=== PATIENT | male | born 1955 | race Caucasian/White ===

== ENCOUNTER → 2018-02-09 19:00 | Outpatient (CLI) | payer OTHER, MEDICAID, SELFPAY ==
--- NOTE | 2018-02-09 | DI.MRI.S_ITS ---
PROCEDURE: MR KNEE LT WO CON INDICATIONS: ACUTE TRAUMATIC INTERNAL DERANGEMENT OF LEFT KNEE TECHNIQUE: Noncontrast sagittal PD fast spin echo and T2 fast spin echo with fat saturation, sagittal 3-D FLASH with fat saturation; coronal T1 spin echo and PD fast spin echo with fat saturation, and axial PD fast spin echo with fat saturation through the knee. COMPARISON: None. FINDINGS: Image quality: Excellent. Menisci: Lateral meniscus appears intact. Intrasubstance signal change involving the free margin of the posterior horn of the medial meniscus with extension to the superior and inferior surfaces suggesting ill-defined tear. A small radial component seen on image 20 series 7. Cruciate ligaments: The anterior and posterior cruciate ligaments appear intact. Medial structures: The medial collateral ligament appears intact. The posterior oblique ligament, semimembranosus tendon insertions, oblique popliteal ligament, and meniscocapsular junction appear intact. Visualized portions of the pes anserinus tendons appear normal. No abnormal bursal fluid. Lateral structures: The lateral collateral ligament, long and short heads of the biceps femoris tendon appear intact. The popliteus tendon appears normal; the popliteofibular ligament appears intact. The posterosuperior and anteroinferior popliteomeniscal fascicles appear intact. The arcuate and fabellofibular ligaments appear intact, on either side of the lateral inferior geniculate artery. Iliotibial band appears normal. Anterior structures: The quadriceps and patellar tendons appear intact. Although, there is prominent superficial infrapatellar subcutaneous edema, although subtle intrasubstance change in the distal patellar tendon suggestive of chronic mild tendinosis. Patellar alignment is normal. No femoral trochlear dysplasia or ventral trochlear prominence. No edema in the infrapatellar fat pad. Bones and cartilage: No bone marrow contusions or fractures. Within the medial compartment, the articular cartilage appears grossly intact. Within lateral compartment, there is intrasubstance signal change at the central weightbearing tibial cartilage without definite focal defect. Within the patellofemoral compartment, there is diffuse mild surface fraying of the patellar cartilage with areas of cartilage fissuring overlying the medial patellar facet. Joint space: There is physiologic knee joint fluid. Moderate Montoya cyst measuring 5.4 cm in cephalocaudad dimension. IMPRESSION: Medial meniscal tear involving the posterior horn detailed above. Mild patellar tendinopathy/tendinosis. Adjacent superficial patellar subcutaneous edema which could be reactive versus acute soft tissue contusion. Mild degenerative joint disease. Small Montoya's cyst. Dictated by: Erwin Whitfield M.D. on 02/12/2018 at 10:03 Approved by: Erwin Whitfield M.D. on 02/12/2018 at 10:13
== END ==
PROVIDERS: PCP Family Medicine; Visit Provider Family Medicine
DX: M23.92 Unspecified internal derangement of left knee (principal); S83.242A Other tear of medial meniscus, current injury, left knee, initial encounter
CPT/HCPCS: 73721

== ENCOUNTER 2023-08-15 08:01 | Day surgery (SDC) | payer MEDICARE, OTHER, MEDICAID, SELFPAY ==
[2023-08-15 08:29] VITALS: BMI 30.5
[2023-08-15 08:44] VITALS: BP 128/72; PULSE 62; RESP 17; TEMP 36.2; O2SAT 96
[2023-08-15] MEDS: LACTATED RINGERS 1,000 ML 42 ML IV (08:53)
[2023-08-15] MEDS: ACETAMINOPHEN 325 MG TABLET 975 MG PO (08:57)
[2023-08-15] MEDS: TERAZOSIN 5 MG CAPSULE 10 MG PO (08:58)
--- NOTE | 2023-08-15 09:02 | P.HP_ITS ---
History of Present Illness History of Present Illness Date Patient Seen: 08/15/23 Time Patient Seen: 09:02 Chief complaint: Umbilical & Inguinal Hernia repairs Narrative: Gagandeep is a 67-year-old man with a symptomatic umbilical hernia. He also has occasional right groin pain and very rarely some left groin pain. He had a CT scan at another hospital that showed bilateral fat containing groin hernias and the umbilical hernia. When he had an appendectomy many years ago the surgeon commented to him that he had a very enlarged prostate, presumably because they had trouble putting a Hammer catheter in. He does report a weak stream. He has seen a urologist in the past but not currently. 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[employer], builder Smoking Status: Never smoker alcohol intake: current substance use type: does not use during the past year weight has: increased > 10 lbs Meds Home Medications and Allergies Home Medications Medication Instructions Recorded Confirmed Type fluticasone furoate 200 1 ea inhalation DAILY 04/18/23 08/15/23 History mcg-vilanterol 25 mcg/dose inhalation powder (Breo Ellipta) montelukast 10 mg tablet 10 mg PO DAILY 04/18/23 08/15/23 History terazosin 10 mg capsule 10 mg PO DAILY 04/18/23 04/18/23 History albuterol sulfate 90 mcg/actuation 2 puff inhalation Q6H PRN Allergy 08/15/23 08/15/23 History aerosol inhaler Symptoms fluticasone propionate 50 2 spray intranasal DAILY 08/15/23 08/15/23 History mcg/actuation nasal spray,suspension (Flonase Allergy Relief) Allergies Allergy/AdvReac Type Severity Reaction Status Date / Time Penicillins [PENICILLINS] Allergy Unknown Verified 08/15/23 08:23 Exam Vital Signs (past 8 hours): - 08/15/23 08:44 Temperature 97.1 F L Pulse Rate 62 Respiratory Rate 17 Blood Pressure 128/72 Pulse Oximetry 96 Oxygen Delivery Method Room Air Oxygen Delivery Method Room Air Narrative Exam Narrative: Reducible umbilical hernia, fascial defect approximately 2 cm Small palpable right groin hernia Left groin hernia is difficult to appreciate on exam due to body habitus Assessment & Plan Assessment and plan (1) Bilateral inguinal hernia: Qualifiers: Obstruction and gangrene presence: without obstruction or gangrene Recurrence: not specified as recurrent Qualified Code(s): K40.20 - Bilateral inguinal hernia, without obstruction or gangrene, not specified as recurrent Status: Acute (2) Umbilical hernia: Qualifiers: Obstruction and gangrene presence: without obstruction or gangrene Qualified Code(s): K42.9 - Umbilical hernia without obstruction or gangrene Status: Acute Quinton Donis is a 67-year-old man with bilateral inguinal hernias and an umbilical hernia. I proposed to him that we proceed with a laparoscopic bilateral i nguinal hernia repair and an umbilical hernia repair with mesh. If however his bladder is chronically distended due to an enlarged prostate it might not be possible to perform the laparoscopic groin hernia repairs in which case I would perform the umbilical hernia repair and an open right inguinal hernia repair since that is the more symptomatic side. We could always return at a later date to perform left inguinal hernia repair if it becomes more symptomatic. He would like to proceed.
[2023-08-15] MEDS: CEFAZOLIN 2 GM/100 ML PREMIX 100 ML IV (09:29)
--- NOTE | 2023-08-15 10:03 | SUR.OPER ---
Supine on padded OR bed, head on pillow, arms padded and tucked at sides, legs uncrossed, safety belt at thigh, tape over blanket over lower legs .
[2023-08-15] MEDS: BUPIVACAINE 0.5% (PF) 30 ML, EPINEPHrine 0.15 MG INJ (10:21)
--- NOTE | 2023-08-15 11:40 | P.OP_ITS ---
Operative Date/Time/Diagnoses Date of procedure: 08/15/23 Time of procedure: 11:40 Pre-op diagnosis: Bilateral inguinal hernia and umbilical hernia Post-op diagnosis: other (Right indirect inguinal hernia and umbilical hernia) Procedure & Clinicians Procedure: 1. Laparoscopic right inguinal hernia repair with mesh 2. Open umbilical hernia repair with mesh Same procedure as scheduled: No Surgeon: Tyrell Morris Anesthesia Type: General Operative Notes Procedure in detail: The patient was given preoperative antibiotics. The patient was brought to the operating room, placed on the table in the supine position with the arms tucked and general anesthesia was induced. The abdomen was prepped and draped in the usual fashion. A time-out was performed. A 2 cm infraumbilical incision was created and dissection was carried down to the hernia sac. The sac was diss ected from the umbilical stalk and the surrounding tissue. The fascial defect was about 2 cm. We then opened the sac with cautery and placed the Carbajal port through the hernia defect. The Martine port was placed through the hernia defect and the abdomen was insufflated to 15 mmHg. The camera was inserted, there was no evidence of any injury from the entry. There was an indirect right inguinal hernia. No obvious left inguinal hernia was seen. There was an enlarged, distended bladder. 5 mm ports were placed under direct vision in the mid left and mid right abdomen. The patient was positioned in steep Trendelenburg. We created right peritoneal flap. The peritoneum was dissected off the right cord structures. A rather bulky cord lipoma was dissected out of the inguinal canal and left attached to its blood supply. A large right Bard mesh was brought in and placed over the defect with the medial edge against Luther's ligament. We allowed the bulky cord lipoma to fall over the inside of the mesh. We then closed the peritoneal flap with a running 3-0 barbed suture. We took one last look around the abdomen and saw no other abnormalities. The suture was removed and accounted for. The 5 mm ports were removed under direct vision. The abdomen was desufflated. The Martine port was removed. We then closed the umbilical fascial defect with 4 interrupted 0 Ethibond sutures. We dissected the subcutaneous adipose tissue off the anterior sheath circumferentially about 1 cm in all directions. We then placed a small disc of polypropylene mesh over the repair and bonded it to the fascia with Tisseel. The skin incisions were closed with 4 Monocryl, Steri-Strips and Band-Aids. Can abdominal binder was applied. EBL: 10 mL Post-operative Condition: stable Disposition: PACU
[2023-08-15 11:45] VITALS: BP 101/56; PULSE 83; RESP 12; TEMP 37.2; O2SAT 93
[2023-08-15 11:50] VITALS: BP 102/58; PULSE 73; RESP 13; O2SAT 96
[2023-08-15 11:55] VITALS: BP 107/77; PULSE 69; RESP 13; O2SAT 94
[2023-08-15] MEDS: OXYCODONE IR 5 MG TABLET PO (11:56)
[2023-08-15 12:10] VITALS: BP 113/79; PULSE 66; RESP 13; TEMP 37.2; O2SAT 97
== END 2023-08-15 12:34 | disposition home or self-care (01) ==
PROVIDERS: PCP Family Medicine; Referring Provider Surgery; Visit Provider Surgery
PROC: (CPT 49650; principal; 2023-08-15 09:15)
PROC: 0YQ64ZZ Repair Left Inguinal Region, Percutaneous Endoscopic Approach (ICD-10-PCS; CPT 49650; 2023-08-15 09:15)
DX: K40.90 Unilateral inguinal hernia, without obstruction or gangrene, not specified as recurrent (principal); K42.9 Umbilical hernia without obstruction or gangrene; D17.6 Benign lipomatous neoplasm of spermatic cord
CPT/HCPCS: 49650; C1781; J0171; J0690; J1100; J2250; J2405; J2704; J3010

== ENCOUNTER → 2024-01-12 08:30 | Outpatient (CLI) | payer OTHER, SELFPAY ==
--- NOTE | 2024-01-12 08:31 | DI.MRI.S_ITS ---
PROCEDURE: MR PELVIC PROSTATE PROTOCOL INDICATIONS: Obstructing prostate TECHNIQUE: Coronal HASTE, axial T1 FSE with fat saturation, 3-plane nonbreath-hold T2 FSE. After the administration of contrast, dynamic axial, delayed axial and coronal VIBE or 2-D FLASH with fat saturation through the pelvis. Diffusion weighted imaging and ADC was performed. COMPARISON: None. FINDINGS: Image quality: Diffusion weighted and dynamic contrast enhanced images are diagnostic. Prostate: Gland size is 5.8 x 6.4 x 6.1 cm; ellipsoid gland volume is 118 mL. Hypertrophy of the transition zone with encapsulated and partially encapsulated nodules. No PI-RADS 3 through 5 lesions. Genitourinary system: Trabeculated bladder wall. Bladder wall diverticula. Bowel and peritoneum: No pathologic free pelvic fluid. Inferior colon and small bowel loops are normal in caliber. Colonic diverticulosis without evidence of diverticulitis. Nodes and vessels: No pelvic or inguinal adenopathy by size criteria. Iliac vessels are normal in caliber. Soft tissues: Right inguinal hernia repair. Small umbilical hernia containing fat. Bones: Marrow demonstrates normal overall signal, without lesions to suggest metastases. IMPRESSION: Prostatomegaly. No PI-RADS 3 through 5 lesions. No pelvic lymphadenopathy by size criteria. No aggressive osseous abnormality. Trabeculated bladder wall with bladder diverticula, consistent with chronic outlet obstruction. Dictated by: Ruslan Pacheco M.D. on 01/12/2024 at 10:32 Approved by: Ruslan Pacheco M.D. on 01/12/2024 at 10:43
== END ==
LOC: MRI 08:30
PROVIDERS: PCP Family Medicine; Referring Provider Urology; Visit Provider Urology
DX: N32.0 Bladder-neck obstruction (principal); R39.14 Feeling of incomplete bladder emptying; N32.89 Other specified disorders of bladder; N32.3 Diverticulum of bladder; K42.9 Umbilical hernia without obstruction or gangrene; N40.0 Benign prostatic hyperplasia without lower urinary tract symptoms
CPT/HCPCS: 72197; A9579

== ENCOUNTER → 2024-06-28 10:12 | Outpatient (CLI) | payer OTHER, SELFPAY ==
[2024-06-28 11:50] LABS: Prostate Specific Antigen 4.26 ng/mL (0.10-4.00)
== END ==
PROVIDERS: PCP Family Medicine; Referring Provider Urology; Visit Provider Urology
DX: N40.0 Benign prostatic hyperplasia without lower urinary tract symptoms (principal); R97.20 Elevated prostate specific antigen [PSA]
CPT/HCPCS: 36415; 51798; 84153; 99213

== ENCOUNTER → 2024-10-16 11:01 | Outpatient (CLI) | payer OTHER, MEDICAID, SELFPAY | PROVIDERS: PCP Family Medicine; Visit Provider Urology | DX: R39.14 Feeling of incomplete bladder emptying (principal); N40.1 Benign prostatic hyperplasia with lower urinary tract symptoms; N13.8 Other obstructive and reflux uropathy; R97.20 Elevated prostate specific antigen [PSA]; Z68.30 Body mass index [BMI] 30.0-30.9, adult | CPT/HCPCS: 87086; 99214 ==

== ENCOUNTER 2024-10-22 06:15 | Day surgery (SDC) | payer OTHER, SELFPAY ==
[2024-10-14 15:02] VITALS: BMI 30.5
[2024-10-22] VITALS (13 sets, daily range): BP systolic 108–140; BP diastolic 62–91; PULSE 58–101; RESP 12–18; TEMP 36.3–37.2; O2SAT 94–97; BMI 31.8
--- NOTE | 2024-10-22 | PATH_ITS ---
[facility] Accession Number: [id number] No. of containers..01 Tissue . 01 Material submitted: . prostate - PROSTATE CHIPS . 01 Diagnosis: PROSTATE CHIPS, TRANSURETHRAL PROSTATIC TISSUE RESECTION: Benign prostatic parenchyma, weight 10 grams with mild chronic focally active inflammation, in a background of glandular and stromal hypertrophy. Benign urothelial mucosa with cystitis cystica changes. Negative for atypia or invasive malignancy. [facility] 10/24/2024 1105 Local . 01 Electronically signed: . Dolly Banuelos MD, Pathologist NPI- [id number] . 01 Gross description: . Received in formalin with two patient identifiers and prostate chips, and consists of a 4.2 x 3.0 x 1.8 cm (10 gram), fischer-brown, cauterized, rubbery, morcellated tissue which is entirely submitted into cassettes A1-A5. ([id number]) /MRV 10/23/2024 1315 Local . 01 Pathologist provided ICD-10: N40.1 . 01 CPT . 821547 Specimen Comment: A courtesy copy of this report has been sent to [facility] Performed at: [address] [facility] [address], [place], [place] [id number] MD Jhoan Jackson MD Phone: [phone]
[2024-10-22] MEDS: ACETAMINOPHEN 325 MG TABLET 975 MG PO (06:59)
[2024-10-22] MEDS: LACTATED RINGERS 1,000 ML 42 ML IV ×2 (07:00→09:19)
--- NOTE | 2024-10-22 07:38 | PM.PREOP ---
Pre-operative Note COVID-19 COVID-19 status: Not tested Interval Note History & Physical reviewed/Exam performed by Physician: Yes Changes to H&P: No
[2024-10-22] MEDS: CIPROFLOXACIN 400 MG/200 ML PIGGYBACK 200 MG IV (07:55)
--- NOTE | 2024-10-22 08:15 | SUR.OPER ---
Lithotomy on padded OR bed, head on pillow, arms secured on padded arm boards at <90 degrees abduction. Legs secured in padded yellow fins stirrups.
[2024-10-22] MEDS: OXYBUTYNIN 5 MG TABLET PO ×2 (10:24→20:38)
[2024-10-22] MEDS: PHENAZOPYRIDINE 100 MG TABLET 200 MG PO ×2 (10:24→20:38)
[2024-10-22] MEDS: hydrOXYzine 50 MG/ML INJ 25 MG IM (10:59)
[2024-10-22] MEDS: OXYCODONE IR 5 MG TABLET PO (11:24)
--- NOTE | 2024-10-22 13:43 | P.OP_ITS ---
Procedure & Clinicians Procedure: 1. Aquablation 2. Transrectal ultrasound of prostate 3. Transurethral resection of prostate 4. Placement of Hammer catheter Same procedure as scheduled: Yes Indications: This 69-year-old male presented with profound complaints of BPH with LUTS failing medical management. Through workup he was found to have a low Q max a markedly enlarged prostate in the 145-150 g range with a median lobe which were laterally based in bulging into the bladder. Patient also had a prostate MRI which showed no worrisome lesions for his elevated PSA. He presents this time for Aquablation to treat his lower urinary tract symptoms and eliminate his outlet obstruction and incomplete emptying of the bladder. Surgeon: Olivier Flowers Click Yes if Unassisted: Yes Anesthesia Type: General Operative Notes Findings: Urethral meatus is normal, the urethra is normal along its length with normal mucosa. The sphincters well coapted. The prostate exhibits marked obstructive character bulging in elongation into the bladder with median lobe. The ureteral orifices at the end of the case were normal position and unaffected. The patient had severe trabeculation cellules diverticula but no mucosal lesions or abnormalities that were worrisome. The truss the catheter time was 90 minutes. Aquablation resection time total of 13 minutes. The resection time with the resectoscope was elongated because of the patient's large residual median lobe. At the end of the procedure the prostatic fossa was widely patent and the patient had a vigorous stream. A 24 [place] 3 way hematuria catheter was left in place with 45 cc in the balloon it was a 30 cc catheter. There were no other abnormalities noted. Closure Type: not applicable Specimen(s): other (Prostate chips) Prosthetic devices, grafts, tissues, transplants, or devices: 24 [place] [address] catheter with 45 cc in the balloon. Applied: catheter (As above) Estimated Blood Loss (mL): 75 Blood products transfused: none Procedure in detail: Procedure in detail: After informed consent was obtained, the patient was id entified brought to the operating room where he was placed in his supine position on the table. Once there anesthesia was induced and maintained. Ensuring an adequate level of anesthesia the patient was transitioned to the lithotomy position where he was prepped. After prepping, time-out, ensuring an adequate level of anesthesia, antibiotics the patient had 60 cc of ultrasound gel instilled within the rectum followed by the ultrasound probe was mounted to the trust stepper which was mounted to the articulating arm which he had been mount it to the bed. The ultrasound probe was aligned and centered in the prostate. This was in the transverse and longitudinal view. The bladder neck verumontanum and central and transition zones were identified. Prostate was found to be again 150 g. With the ultrasound aligned and centered the patient was then draped in his sterile fashion. After draping the 24 [place] aqua beam handpiece was inserted into the prostatic urethra and bladder under direct vision cystoscopy was performed. As it was inserted the level of the external sphincter, verumontanum prostate and bladder neck as well as median lobe were noted under direct vision and by ultrasound. The Aquablation handpiece was then secured to the handpiece articulating arm which he had been secured to the bed. The aqua beam handpiece was then confirmed to be in alignment with the truss probe and that it was parallel and colinear. The Aquablation nozzle was then confirmed to be centered and anterior to the median lobe. The cystoscope was then retracted in the verumontanum and bladder neck and external sphincter were visualized the tip of the scope was left just proximal to the external sphincter sphincter. The alignment of the ultrasound probe and Aquablation handpiece was once again confirmed and compression applied. Horizontal alignment of the hand piece water jet was then confirmed. Aquablation treatment zones were then planned using real-time ultrasound to visualize the contours of the prostate the depth and radial angles were defined in the transverse view. With this accomplished in the sagittal view the Aquablation beam nozzle was identified in his position registered with the software. The tip of the scope was then also marked in the length of resection determined. The way points of the started resection median lobe bladder neck mid prostate and verumontanum were tip of the scope were then marked. The treatment plan was then confirmed. And insuring the patient was paralyzed Aquablation treatment was started and follow the resection contour. This was monitored with real-time ultrasound. With his 1st pass completed again in the longitudinal view the treatment plan was adjusted and a 2nd pass performed with the patient paralyzed. Was then determine that the median lobe would need a 3rd pass and again should be noted that a program for depth and radial angles was confirmed for both the prostate and the median lobe. For the 3rd pass again the the treatment parameters were adjusted for the median lobe and the 3rd pass completed treating just the median lobe. With this done the total resection time with the Aquablation was 13 minutes. The cystoscope was then advanced of the tip of the scope and the Aquablation handpiece undocked from the articulating arm and backed out under direct vision. Of note prior to inserting the Aquablation handpiece the meatus was too small to accept it and was dilated to 28 [place] sequentially from 20 [place] with Sebastián sounds. The resectoscope was then passed through the urethra prostate end of the bladder under direct vision and ultrasound guidance. And helical evacuator was then used to evacuate clot and clear of the bladder. The resectoscope and resecting element were then inserted and after noting the position of the ureteral orifices the bladder neck and residual median lobe were resected from the to to 10 o'clock position sequentially. Points of bleeding were controlled. The apex was visualized verumontanum was intact there was some small amount of apical tissue which was resected with the resectoscope. Points of bleeding anteriorly in in the remainder of the prostate were controlled with the electrocautery. The median lobe tissue did require a longer period of resection to remove the residual. The [employer] evacuator was then used to evacuate the prostate chips and a small amount of clot and the scope was reinserted ureteral orifices were in good position and on affected by the procedure. With the bladder full the scope was removed and the patient had a vigorous stream. A 24 [place] 30 cc three-way hematuria catheter was then paced with the aid of a catheter guide and ultrasound guidance. The balloon was filled with 45 cc of sterile water and placed to gravity drainage and continuous bladder irrigation. It was then hand irrigated with water and the effluent was light pink. The catheter was placed a very gentle traction and the patient was awakened having tolerated the procedure well to be transferred to the postanesthesia care unit with the catheter in place and the continuous bladder irrigation running. There were no complications. Complications: none Post-operative Condition: stable Disposition: PACU Plan for aftercare: Patient will be observed in the postanesthesia care unit and if his urine remains an acceptable color the patient will be sent home to follow up in my office on if it should be ?redder? than I would like we will bring him in overnight with continuous bladder irrigation.
--- NOTE | 2024-10-22 16:12 | PC.NURSE ---
Addendum entered by Gretel Agrawal R.N. 10/22/24 18:36: Patients true urine out is 1400. Color is still grade 2. Tolerating bladder irrigation. Addendum entered by Gretel Agrawal R.N. 10/22/24 17:12: Patients urine is now a grade 2, the color has lightned to more of a blush color. He ate well at dinner and is resting. He knows to call if he needs pain medication. Original Note: Patient up to room 203 about an hour ago, he is settled in and oriented to his room and callbell. He has a [address] way farrell catheter with NS irrigation and the grade of his urine is a grade 2/3 in the farrell tube. He denies pain at this time, or nausea. Bladder is not distended. Resting comfortably and tolerating irrigation well.
[2024-10-22] MEDS: ACETAMINOPHEN 325 MG TABLET 650 MG PO (20:38)
[2024-10-23 00:17] VITALS: BP 108/66; PULSE 53; RESP 18; TEMP 36.4; O2SAT 97
[2024-10-23 06:00] VITALS: BP 116/72; PULSE 54; RESP 18; TEMP 36.7; O2SAT 95
[2024-10-23 07:56] VITALS: PULSE 65; RESP 16; O2SAT 96
--- NOTE | 2024-10-23 08:14 | P.DS_ITS ---
History of Present Illness History of Present Illness Date Patient Seen: 10/23/24 Time Patient Seen: 07:36 Date of Onset of Symptoms: 10/22/24 Chief complaint: Aquablation Narrative: This patient underwent Aquablation yesterday and was observed overnight with continuous bladder irrigation. His urine this morning is clear and he is ready for discharge. Patient denies gastrointestinal distress reports that he is passing flatus and only complaint of discomfort is at the tip of the penis which oxybutynin Pyridium are taken care of. Discharge instructions given verbally to the patient and he will be seen tomorrow for likely catheter removal. Vital signs are stable does have a heart rate of 54. On exam abdomen is soft nontender with normal bowel tones. Hammer catheter is in place draining clear Pyridium tinged urine. Discharge Providers Provider Discharge Date: 10/23/24 Primary care physician: Bart Dumas DO Discharge provider: Olivier Flowers MD Summary Hospital Course Discharge Diagnosis: Benign prostatic hyperplasia with LUTS after Aquablation. Hospital Course: Patient was admitted to the hospital underwent Aquablation without incident. Postprocedure patient did have some persistent hematuria therefore was brought up to acute care for continuous bladder irrigation. His urine has cleared overnight and he has tolerated a regular diet ambulated without difficulty is passing flatus in his ready for discharge. Status at Discharge Cognitive/behavioral status at discharge: oriented Functional status at discharge: independent ambulation Overall status at discharge: patient is back to baseline Time Spent with Patient Time spent: Less than 30 minutes Exam Vital Signs (past 8 hours): - 10/23/24 00:17 10/23/24 06:00 10/23/24 07:56 Temperature 97.6 F 98.1 F Pulse Rate 53 L 54 L 65 Respiratory Rate 18 18 16 Blood Pressure 108/66 116/72 Pulse Oximetry 97 95 96 Oxygen Delivery Method Room Air Oxygen Flow Rate 0 0 Oxygen Delivery Method Room Air Oxygen Flow Rate 0 Narrative Exam Narrative: General: This is an awake, alert, oriented male in no acute distress lying in his bed. Lungs: Clear Cardiovascular exam: Regular with a rate of 60 this morning Abdominal exam: Soft, nontender, obese Genitourinary exam: Normal male with Hammer catheter in place draining Pyridium tinged urine Extremities nontender ON LICENSE OF [facility] Medical History BPH w urinary obs/LUTS Bladder outlet obstruction Constipation Feeling of incomplete bladder emptying Secondhand smoke exposure Benign prostatic hyperplasia with lower urinary tract symptoms History of asthma Irritable bowel syndrome with constipation and diarrhea BPH with elevated PSA Hypersomnia (~03/2019) Insomnia, persistent (~03/2019) Obstructive sleep apnea of adult (~03/2019) Snoring Asthma Surgical History History of hernia repair (08/15/23) Hx of appendectomy History of laparoscopic cholecystectomy (~2016) Family History Father Cancer Diabetes mellitus Gout Mother Cancer Social History marital status: unmarried,single number of children: 1 household members: friend(s) lives independently: Yes housing: house education level: high school occupational status: employed 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 Plan of Treatment: Discharge to home with Hammer catheter. Patient to follow up my office tomorrow morning. Discharge instructions have been discussed with the patient and also provided in written form. Discharge Plan Discharge Plan Patient Disposition: Home Provider Discharge Comment: Patient to be discharged home with Hammer catheter please provide the necessary tools and teaching for the patient to use the catheter. Once discharge the patient can expect some blood in his urine perhaps some small clots. Patient should increase his fluid intake to ?flush things through?. Patient should refrain from heavy lifting, vigorous or strenuous activity until released by me. Patient may resume his regular diet and the patient may shower. Patient was to have a follow-up appointment tomorrow morning for possible catheter removal. It would be my recommendation that the patient has spent the night in town and weight to go back to the [place] until his catheter has been removed. Discharge orders & Medications Discharge Orders: Discharge (Order); Ordered 03/19/25 Ordered By: Olivier Flowers Prescriptions: New phenazopyridine [Pyridium] 200 mg tablet 200 mg PO TID PRN (Reason: Bladder irritation) Qty: 6 0RF oxybutynin chloride 5 mg tablet 5 mg PO BID-TID PRN (Reason: bladder spasms) Qty: 6 0RF Continued montelukast 10 mg tablet 10 mg PO DAILY terazosin 10 mg capsule 10 mg PO DAILY fluticasone furoate-vilanterol [Breo Ellipta] 200-25 mcg/dose blister with device 1 ea inhalation DAILY albuterol sulfate 90 mcg/actuation HFA aerosol inhaler 2 puff inhalation Q6H PRN (Reason: Allergy Symptoms) fluticasone propionate [Flonase Allergy Relief] 50 mcg/actuation spray,suspension 2 spray intranasal DAILY cholestyramine (with sugar) 4 gram powder 4 ea PO DAILY Follow up/Referrals: Bart Dumas DO [Primary Care Provider] - Olivier Flowers MD [Physician] - Diet/Activity/Treatments Diet: Diet as Tolerated Catheter: 3-way Hammer Visit Report/Discharge Packet Instructions: How to Care for Your Hammer Catheter -- Male, DI for Transurethral Resection of the Prostate, DI for Constipation, How to Prevent Falls Stand Alone Forms: Patient Portal/API, Stroke Signs & Symptoms Discharge Data Primary Care Provider: Bart Dumas Attending Provider: Olivier Flowers Quality VTE Deep Vein Thrombosis/Pulmonary Embolism Present on Admission: No IH PROFEE Charge Codes Discharge inpatient/observation: [id number]
[2024-10-23] MEDS: ACETAMINOPHEN 325 MG TABLET 650 MG PO (08:57)
[2024-10-23] MEDS: TERAZOSIN 5 MG CAPSULE 10 MG PO (08:57)
[2024-10-23] MEDS: MONTELUKAST 10 MG TABLET PO (08:58)
[2024-10-23] MEDS: PHENAZOPYRIDINE 100 MG TABLET 200 MG PO (09:03)
[2024-10-23] MEDS: OXYBUTYNIN 5 MG TABLET PO (09:03)
--- NOTE | 2024-10-23 12:23 | PC.NURSE ---
Discharge: Pt seen by MD Flowers. He can go home today. Dr. Flowers turned off irrigant. Urine was a 3 at time of d/c home with some sediment. Dr. Flowers gave discharge instructions. Able to tolerate diet w/out problems. Tylenol has been effective for pain. Pt shown farrell cath care and he did own farrell cath care correctly. Shown how to place farrell bag and leg bag. questions answered. Reviewed d/c packet. He is staying the night in a hotel instead of going back to the [place] per MD request and he lives alone. MD give pt permission to drive and he is not on narcotics. Pt drove self to the hotel. His rx were picked up from [facility].
== END 2024-10-23 11:00 | disposition home or self-care (01) ==
LOC: OR 06:15 → AC 14:14
PROVIDERS: PCP Family Medicine; Referring Provider Urology; Visit Provider Urology
PROC: 0VT08ZZ Resection of Prostate, Via Natural or Artificial Opening Endoscopic (ICD-10-PCS; CPT 0421T; principal; 2024-10-22 07:45)
DX: N40.1 Benign prostatic hyperplasia with lower urinary tract symptoms (principal); R33.9 Retention of urine, unspecified; R39.198 Other difficulties with micturition; R35.1 Nocturia
CPT/HCPCS: 0421T; C2596; J0330; J0744; J1171; J2405; J2704; J3010; J3410; J3490

== ENCOUNTER → 2024-10-30 15:03 | Outpatient (CLI) | payer OTHER, SELFPAY ==
[2024-10-24 08:35] VITALS: BMI 31.8
[2024-10-30 16:35] LABS: Appearance Urine UA SL CLOUDY; Bilirubin Urine UA NEGATIVE (NEGATIVE); Color Urine UA ORANGE; Glucose Urine UA TRACE g/dL (Negative); Ketones Urine UA NEGATIVE (NEGATIVE); Leukocyte Esterase Urine UA TRACE (NEGATIVE); Nitrite Urine UA POSITIVE (Negative); Occult Blood Urine UA 3+ (Negative); Protein Urine UA 3+ (Negative)
[2024-10-30 16:58] LABS: Bacteria Urine Few (2-10); Culture Indicated Urine Specimen Cultured; RBC Urine 10-30/HPF (0-5/HPF); Squamous Epithelial Cell Urine 1-5 /HPF (0-5/HPF); Urine Volume 10mL (spun); WBC Urine 5-10/HPF (0-5/HPF)
== END ==
PROVIDERS: PCP Family Medicine; Visit Provider Urology
DX: N32.0 Bladder-neck obstruction (principal); K59.00 Constipation, unspecified; R39.14 Feeling of incomplete bladder emptying; R39.9 Unspecified symptoms and signs involving the genitourinary system
CPT/HCPCS: 81001; 87086

== ENCOUNTER → 2024-11-06 14:33 | Outpatient (CLI) | payer OTHER, MEDICAID, SELFPAY ==
[2024-10-24 08:35] VITALS: BMI 31.8
== END ==
PROVIDERS: PCP Family Medicine; Visit Provider Urology
DX: R33.9 Retention of urine, unspecified (principal); N40.1 Benign prostatic hyperplasia with lower urinary tract symptoms; N13.8 Other obstructive and reflux uropathy
CPT/HCPCS: 51798; 87086

== ENCOUNTER → 2024-11-18 13:13 | Outpatient (CLI) | payer OTHER, SELFPAY ==
[2024-10-24 08:35] VITALS: BMI 31.8
== END ==
PROVIDERS: PCP Family Medicine; Visit Provider Urology
DX: R33.9 Retention of urine, unspecified (principal); N40.1 Benign prostatic hyperplasia with lower urinary tract symptoms; N13.8 Other obstructive and reflux uropathy
CPT/HCPCS: 87086

== ENCOUNTER → 2025-07-11 14:56 | Outpatient (CLI) | payer OTHER, MEDICAID, SELFPAY ==
[2024-10-24 08:35] VITALS: BMI 31.8
[2025-07-11 16:25] LABS: Prostate Specific Antigen 3.76 ng/mL (0.10-4.00)
== END ==
PROVIDERS: PCP Nurse Practitioner Family; Referring Provider Nurse Practitioner Family; Visit Provider Urology
DX: N40.1 Benign prostatic hyperplasia with lower urinary tract symptoms (principal); N13.8 Other obstructive and reflux uropathy; R97.20 Elevated prostate specific antigen [PSA]
CPT/HCPCS: 36415; 84153